=== PATIENT | female | born 1945 | race Caucasian/White ===

== ENCOUNTER → 2016-07-29 | Outpatient (CLI) | payer MEDICARE, OTHER ==
[~2016-07-29] MED LIST: CENTRUM SILVER1 EAC3 PO; LINZESS145 MCG PO; LIPITOR20 MG PO; LISINOPRIL40 MG PO; LYRICA75 MG PO; OPANA ER10 MG PO; ZOLOFT100 MG PO; ZYRTEC10 M3 PO
== END | disposition home or self-care (01) ==
LOC: CDC 10:12
DX: Z01.810 Encounter for preprocedural cardiovascular examination (principal); M19.042 Primary osteoarthritis, left hand; M79.642 Pain in left hand; G56.02 Carpal tunnel syndrome, left upper limb
CPT/HCPCS: 93000